=== PATIENT | male | born 1945 | race Hispanic/Latino ===

== ENCOUNTER → 2024-07-05 | Outpatient (REF) | payer MEDICARE | LOC: RAD 13:59 | PROVIDERS: ATTEND Internal Medicine Critical Care Medicine | DX: R06.00 Dyspnea, unspecified (principal) | CPT/HCPCS: 71046 ==

== ENCOUNTER → 2025-04-18 | Outpatient (REF) | payer MEDICARE ==
[~2025-04-18] MED LIST: IOPAMIDOL 370 MG/ML 100 ML INFUS..BTL INJ ONE
[2025-04-18 08:39] LABS: EST GLOMERULAR FILTRATION RATE 60.0 ML/MIN (>=60)
== END ==
LOC: CT 07:35
PROVIDERS: ATTEND Internal Medicine
DX: R79.1 Abnormal coagulation profile (principal)
CPT/HCPCS: 36415; 71260; 82565; 84520; Q9967